=== PATIENT | male | born 1965 | race Two or more races ===

== ENCOUNTER 2017-08-11 13:00 | Emergency (ER) | payer MEDICAID ==
[~2017-08-11] VITALS: Ht 172.7 cm; Wt 154.2 kg
[2017-08-11 14:23] LABS: Basophils # (auto) 0.1 uL; Eosinophils # (auto) 0.3 uL; Eosinophils % (auto) 3.1 % (0.0-7.0); Hematocrit 51.2 % (41.0-53.0); Hemoglobin 16.9 g/dL (13.5-17.5); Lymphocytes % (auto) 23.9 % (10.0-50.0); Mean Corpuscular Hemoglobin 28.8 pg (28.0-32.0); Mean Corpuscular Volume 87.1 fL (80.0-100.0); Monocytes # (auto) 0.5 uL; Neutrophils # (auto) 5.4 uL; Nucleated Red Blood Cells % 0.2 %; Platelet Count (auto) 263 10^3/uL (140-450); Red Cell Distribution Width 17.5 % (11.8-14.3); White Blood Cell 8.2 10^3/uL (4.4-10.8)
[2017-08-11 14:36] LABS: Albumin 3.3 g/dL (3.4-5.0); Alkaline Phosphatase 100 U/L (45-117); Anion Gap 6 (5-15); Aspartate Aminotransferase 23 U/L (15-37); BUN/Creatinine Ratio 15.5; Bilirubin, Total 0.7 mg/dL (0.2-1.0); Blood Urea Nitrogen 15 mg/dL (7-18); Calcium 8.3 mg/dL (8.5-10.1); Carbon Dioxide 31 mmol/L (21-32); Chloride 100 mmol/L (98-107); GFR African American 104 mL/min; GFR Non-African American 86 mL/min; Glucose 113 mg/dL (74-106); Magnesium 2.2 mg/dL (1.6-2.6); Potassium 3.9 mmol/L (3.5-5.1); Sodium 137 mmol/L (136-145); Total Protein 7.8 g/dL (6.4-8.2)
[2017-08-11 15:34] VITALS: BP 123/65
== END 2017-08-11 15:26 | disposition home or self-care (01) ==
LOC: ER 13:00
DX: I11.0 Hypertensive heart disease with heart failure (principal); I50.9 Heart failure, unspecified; E66.01 Morbid (severe) obesity due to excess calories; Z68.43 Body mass index [BMI] 50.0-59.9, adult
CPT/HCPCS: 36415; 71020; 80053; 83735; 84484; 85025; 93005

== ENCOUNTER 2018-01-18 14:51 | Inpatient (IN) | payer MEDICAID ==
[~2018-01-18] VITALS: Ht 175.3 cm; Wt 147.3 kg
[2018-01-18 15:47] LABS: Basophils # (auto) 0 uL; Basophils % (auto) 0.5 % (0.0-2.0); Eosinophils # (auto) 0.2 uL; Eosinophils % (auto) 2.8 % (0.0-7.0); Hematocrit 51.6 % (41.0-53.0); Hemoglobin 16.9 g/dL (13.5-17.5); Lymphocytes # (auto) 1.1 uL; Lymphocytes % (auto) 12.9 % (10.0-50.0); Mean Corpuscular Hemoglobin 29.1 pg (28.0-32.0); Mean Corpuscular Hgb Conc. 32.7 g/dL (32.0-36.0); Monocytes # (auto) 0.7 uL; Monocytes % (auto) 7.9 % (0.0-12.0); Neutrophils # (auto) 6.4 uL; Neutrophils % (auto) 75.9 % (37.0-80.0); Nucleated Red Blood Cells % 0.1 %; Platelet Count (auto) 271 10^3/uL (140-450); Red Cell Distribution Width 16.8 % (11.8-14.3); White Blood Cell 8.5 10^3/uL (4.4-10.8)
[2018-01-18 16:04] LABS: Albumin 3.2 g/dL (3.4-5.0); Bilirubin, Total 0.8 mg/dL (0.2-1.0); Calcium 8.4 mg/dL (8.5-10.1); Magnesium 2.3 mg/dL (1.6-2.6); Potassium 4.2 mmol/L (3.5-5.1); Total Protein 7.5 g/dL (6.4-8.2)
[2018-01-18] MEDS ORDERED: LEVOFLOXACIN 500MG 100 ML IV ONE (16:30)
[2018-01-18] MEDS ORDERED: SODIUM CHLORIDE 0.9% 4,500 ML IV ONE (16:30)
[2018-01-18] MEDS ORDERED: cefTRIAXone 1GM/10ml IVPUSH 10 ML IV ONE (17:30)
[2018-01-18] MEDS ORDERED: AZITHROMYCIN 500MG/ 250ML 250 ML IV ONE (17:30)
[2018-01-18] MEDS ORDERED: ACETAMINOPHEN 325 MG TAB PO PRN (17:45)
[2018-01-18] MEDS ORDERED: DOCUSATE SOD 100 MG CAP PO PRN (17:45)
[2018-01-18] MEDS ORDERED: MORPHINE SULFATE 4 MG/ML SYR/VIAL IV PRN ×2 (17:45)
[2018-01-18] MEDS ORDERED: TEMAZEPAM 15 MG CAP PO PRN (17:45)
[2018-01-18] MEDS ORDERED: NITROGLYCERIN 0.4 MG SL TAB SL PRN (17:45)
[2018-01-18] MEDS ORDERED: ONDANSETRON HCL 4 MG/2 ML VIAL IV PRN (17:45)
[2018-01-18 18:13] LABS: Urine Bacteria NONE SEEN /hpf (None Seen); Urine Blood Negative /uL (Negative); Urine Mucus FEW (None Seen); Urine Specific Gravity 1.016 (1.001-1.035); Urine WBC 1 /hpf (0 - 3)
[2018-01-18] MEDS: IPRATROPIUM BROM 0.5 MG/2.5ML INH SOL NEB SCH (18:15)
[2018-01-18] MEDS: ALBUTEROL SULF 2.5 MG/0.5ML(0.5%) NEB SOLN NEB SCH (18:15)
[2018-01-18] MEDS: FUROSEMIDE 40 MG TAB PO SCH (18:42)
[2018-01-18] MEDS: BOOST PLUS 8 ounce PO SCH (18:56)
[2018-01-18 18:59] VITALS: BP 152/88
[2018-01-18] MEDS ORDERED: cloNIDine HCL 0.1 MG TAB PO PRN (19:30)
[2018-01-18] MEDS ORDERED: LOSA100T27 PO (20:47)
[2018-01-18] MEDS ORDERED: FURO40TA PO (20:47)
[2018-01-18] MEDS ORDERED: ALBU2TAB4 (20:47)
[2018-01-18] MEDS ORDERED: OME20GT PO (20:47)
[2018-01-18] MEDS: HYDROcodone-ACET 5/325MG TAB PO PRN (21:22)
[2018-01-18] MEDS: SODIUM CHLOR 0.9% PF (SALINE LOCK) 10ML VIAL IV SCH (21:23)
[2018-01-18] MEDS: FAMOTIDINE 20 MG TAB PO SCH (21:23)
[2018-01-18] MEDS: POTASSIUM CHL 10 Meq TABLET PO SCH (21:23)
[2018-01-19] MEDS: ALBUTEROL SULF 2.5 MG/0.5ML(0.5%) NEB SOLN NEB SCH ×4 (00:09→19:01)
[2018-01-19] MEDS: IPRATROPIUM BROM 0.5 MG/2.5ML INH SOL NEB SCH ×4 (00:09→19:01)
[2018-01-19 04:33] VITALS: BP 111/62
[2018-01-19] MEDS: SODIUM CHLOR 0.9% PF (SALINE LOCK) 10ML VIAL IV SCH ×3 (05:37→21:14)
[2018-01-19] MEDS: FUROSEMIDE 40 MG TAB PO SCH ×2 (05:38→17:51)
[2018-01-19 05:59] LABS: Basophils # (auto) 0 uL; Basophils % (auto) 0.3 % (0.0-2.0); Eosinophils # (auto) 0.1 uL; Hemoglobin 16.9 g/dL (13.5-17.5); Lymphocytes # (auto) 0.9 uL; Lymphocytes % (auto) 12.4 % (10.0-50.0); Mean Corpuscular Hemoglobin 29.3 pg (28.0-32.0); Mean Corpuscular Hgb Conc. 33.1 g/dL (32.0-36.0); Mean Corpuscular Volume 88.4 fL (80.0-100.0); Monocytes # (auto) 0.7 uL; Monocytes % (auto) 9.8 % (0.0-12.0); Neutrophils # (auto) 5.5 uL; Neutrophils % (auto) 75.5 % (37.0-80.0); Nucleated Red Blood Cells % 0.1 %; Platelet Count (auto) 258 10^3/uL (140-450); Red Blood Cells 5.77 10^6/uL (4.5-5.90); Red Cell Distribution Width 16.9 % (11.8-14.3); White Blood Cell 7.3 10^3/uL (4.4-10.8)
[2018-01-19 06:34] LABS: Albumin 2.9 g/dL (3.4-5.0); BUN/Creatinine Ratio 14.9; Calcium 8.5 mg/dL (8.5-10.1); Potassium 4.7 mmol/L (3.5-5.1)
[2018-01-19 06:38] LABS: Bilirubin, Total 0.8 mg/dL (0.2-1.0); Total Protein 7.3 g/dL (6.4-8.2)
[2018-01-19] MEDS: BOOST PLUS 8 ounce PO SCH ×3 (07:41→17:50)
[2018-01-19 08:39] VITALS: BP 133/67
[2018-01-19] MEDS: HYDROcodone-ACET 5/325MG TAB PO PRN ×2 (11:05→21:14)
[2018-01-19] MEDS: cefTRIAXone 1GM/10ml IVPUSH 10 ML IV SCH (11:40)
[2018-01-19] MEDS: AZITHROMYCIN 500MG/ 250ML 250 ML IV SCH (11:41)
[2018-01-19] MEDS: LOSARTAN POTASSIUM 50 MG TAB PO SCH (11:41)
[2018-01-19] MEDS: POTASSIUM CHL 10 Meq TABLET PO SCH ×2 (11:41→21:14)
[2018-01-19] MEDS: MULTIPLE VITAMIN TAB PO SCH (11:42)
[2018-01-19] MEDS: FAMOTIDINE 20 MG TAB PO SCH ×2 (11:42→21:14)
[2018-01-19] MEDS: PANTOPRAZOLE 40 MG TAB PO SCH (11:42)
[2018-01-19 12:12] VITALS: BP 80/45
[2018-01-19 16:37] VITALS: BP 105/65
[2018-01-19 22:00] VITALS: BP 112/56
[2018-01-20] MEDS: IPRATROPIUM BROM 0.5 MG/2.5ML INH SOL NEB SCH ×3 (00:07→13:12)
[2018-01-20] MEDS: ALBUTEROL SULF 2.5 MG/0.5ML(0.5%) NEB SOLN NEB SCH ×3 (00:07→13:12)
[2018-01-20 05:30] VITALS: BP 134/67
[2018-01-20] MEDS: SODIUM CHLOR 0.9% PF (SALINE LOCK) 10ML VIAL IV SCH ×2 (05:33→13:26)
[2018-01-20] MEDS: FUROSEMIDE 40 MG TAB PO SCH (05:34)
[2018-01-20 06:39] LABS: Eosinophils # (auto) 0.2 uL; Eosinophils % (auto) 3.4 % (0.0-7.0); Hematocrit 55.1 % (41.0-53.0); Neutrophils # (auto) 4.1 uL; Red Cell Distribution Width 16.9 % (11.8-14.3); White Blood Cell 6.8 10^3/uL (4.4-10.8)
[2018-01-20 06:48] LABS: Basophils # (auto) 0 uL; Basophils % (auto) 0.5 % (0.0-2.0); Hemoglobin 18.2 g/dL (13.5-17.5); Lymphocytes # (auto) 1.5 uL; Lymphocytes % (auto) 21.6 % (10.0-50.0); Mean Corpuscular Hemoglobin 29.4 pg (28.0-32.0); Mean Corpuscular Hgb Conc. 33.1 g/dL (32.0-36.0); Monocytes % (auto) 14.6 % (0.0-12.0); Neutrophils % (auto) 59.9 % (37.0-80.0); Nucleated Red Blood Cells % 0.3 %; Platelet Count (auto) 274 10^3/uL (140-450); Red Blood Cells 6.19 10^6/uL (4.5-5.90)
[2018-01-20 06:53] LABS: Potassium 4.3 mmol/L (3.5-5.1)
[2018-01-20 07:01] LABS: Albumin 2.8 g/dL (3.4-5.0); BUN/Creatinine Ratio 20.2; Calcium 8.5 mg/dL (8.5-10.1)
[2018-01-20 07:03] LABS: Bilirubin, Total 0.8 mg/dL (0.2-1.0); Total Protein 7.1 g/dL (6.4-8.2)
[2018-01-20 07:25] VITALS: BP 99/45
[2018-01-20] MEDS: BOOST PLUS 8 ounce PO SCH ×2 (08:00→12:14)
[2018-01-20] MEDS: cefTRIAXone 1GM/10ml IVPUSH 10 ML IV SCH (08:41)
[2018-01-20] MEDS: HYDROcodone-ACET 5/325MG TAB PO PRN ×2 (08:42→09:56)
[2018-01-20] MEDS ORDERED: amLODIPine BESYLATE 5 MG TAB PO SCH (10:00)
[2018-01-20] MEDS: LOSARTAN POTASSIUM 50 MG TAB PO SCH (10:00)
[2018-01-20] MEDS: AZITHROMYCIN 500MG/ 250ML 250 ML IV SCH (10:44)
[2018-01-20] MEDS: MULTIPLE VITAMIN TAB PO SCH (10:46)
[2018-01-20] MEDS: FAMOTIDINE 20 MG TAB PO SCH (10:46)
[2018-01-20] MEDS: POTASSIUM CHL 10 Meq TABLET PO SCH (10:46)
[2018-01-20] MEDS: PANTOPRAZOLE 40 MG TAB PO SCH (10:47)
[2018-01-20 12:13] VITALS: BP 101/50
[2018-01-20 13:56] VITALS: BP 101/50
== END 2018-01-20 16:04 | disposition home or self-care (01) | DRG 139 ==
LOC: EDBD 14:51 → EDUNIT# 14:51 → ER 14:51 → TELE 14:52 → TELE-CENTR 20:30
PROVIDERS: ADMIT Internal Medicine; ATTEND Internal Medicine
DX: J18.1 Lobar pneumonia, unspecified organism (principal); E44.0 Moderate protein-calorie malnutrition; I11.0 Hypertensive heart disease with heart failure; J44.0 Chronic obstructive pulmonary disease with (acute) lower respiratory infection; I48.92 Unspecified atrial flutter; J45.901 Unspecified asthma with (acute) exacerbation; I50.9 Heart failure, unspecified; I48.91 Unspecified atrial fibrillation; E83.51 Hypocalcemia; E66.01 Morbid (severe) obesity due to excess calories; G47.33 Obstructive sleep apnea (adult) (pediatric); M19.90 Unspecified osteoarthritis, unspecified site; N40.0 Benign prostatic hyperplasia without lower urinary tract symptoms; I25.10 Atherosclerotic heart disease of native coronary artery without angina pectoris; Z85.828 Personal history of other malignant neoplasm of skin; Z87.891 Personal history of nicotine dependence; Z68.42 Body mass index [BMI] 45.0-49.9, adult
CPT/HCPCS: 36415; 36600; 71046; 80053; 81001; 82805; 83605; 83735; 83880; 84484; 85025; 85379; 87040; 87070; 87205; 93005; 94640; 94660; J1956

== ENCOUNTER 2018-11-07 16:07 | Inpatient (IN) | payer MEDICAID | END 2018-11-12 17:00 | disposition home or self-care (01) | LOC: ER 16:07 → TELE 18:30 → TELE-WESTW 22:40 | PROC: B5171ZZ Fluoroscopy of Left Subclavian Vein using Low Osmolar Contrast (ICD-10-PCS; principal; ~2018-11-07) | PROC: 0JH606Z Insertion of Pacemaker, Dual Chamber into Chest Subcutaneous Tissue and Fascia, Open Approach (ICD-10-PCS; ~2018-11-07) | DX: I49.5 Sick sinus syndrome (principal); I24.9 Acute ischemic heart disease, unspecified; E66.01 Morbid (severe) obesity due to excess calories; I11.0 Hypertensive heart disease with heart failure; I50.22 Chronic systolic (congestive) heart failure; E11.9 Type 2 diabetes mellitus without complications; J44.9 Chronic obstructive pulmonary disease, unspecified ==

== ENCOUNTER 2019-10-03 17:22 | Emergency (ER) | payer MEDICAID ==
[~2019-10-03] VITALS: Ht 167.6 cm; Wt 101.6 kg
[~2019-10-03 17:22] MED LIST: ALBU2TAB4; FURO1TAB31 PO; HYDR-3547 PO; LOSA-39 PO; OME20GT PO; POTA10TA51 PO; SENN1TAB14 PO
[2019-10-03 17:55] VITALS: BP 128/69
== END 2019-10-03 18:53 | disposition home or self-care (01) ==
LOC: ER 17:33
DX: S69.92XA Unspecified injury of left wrist, hand and finger(s), initial encounter (principal); M79.642 Pain in left hand; X58.XXXA Exposure to other specified factors, initial encounter; Y93.89 Activity, other specified; Y92.89 Other specified places as the place of occurrence of the external cause; Y99.8 Other external cause status
CPT/HCPCS: 73130

== ENCOUNTER 2020-10-11 09:10 | Emergency (ER) | payer MEDICARE, MEDICAID ==
[~2020-10-11] VITALS: Ht 175.3 cm; Wt 158.8 kg
[2020-10-11 09:24] VITALS: BP 144/65
[2020-10-11 10:15] LABS: Basophils # (auto) 0 10 ^3/uL (0-0.2); Eosinophils # (auto) 0.2 10 ^3/uL (0-0.8); Lymphocytes # (auto) 0.9 10 ^3/uL (0.4-5.4); Neutrophils # (auto) 5.6 10 ^3/uL (1.6-8.6); White Blood Cell 7.3 10^3/uL (4.4-10.8)
[2020-10-11 10:18] LABS: Basophils % (auto) 0.3 % (0.0-2.0); Eosinophils % (auto) 2.5 % (0.0-7.0); Hemoglobin 17.6 g/dL (13.5-17.5); Lymphocytes % (auto) 11.7 % (10.0-50.0); Mean Corpuscular Hemoglobin 25.5 pg (28.0-32.0); Mean Corpuscular Hgb Conc. 31.4 g/dL (32.0-36.0); Mean Corpuscular Volume 81.3 fL (80.0-100.0); Monocytes # (auto) 0.7 10 ^3/uL (0-1.3); Monocytes % (auto) 9.1 % (0.0-12.0); Neutrophils % (auto) 76.4 % (37.0-80.0); Nucleated Red Blood Cells % 0.6 %; Platelet Count (auto) 257 10^3/uL (140-450); Red Blood Cells 6.91 10^6/uL (4.5-5.90); Red Cell Distribution Width 18.7 % (11.8-14.3)
[2020-10-11 10:31] LABS: Albumin 2.9 g/dL (3.4-5.0); Calcium 8.4 mg/dL (8.5-10.1); Potassium 3.9 mmol/L (3.5-5.1)
[2020-10-11 10:35] LABS: BUN/Creatinine Ratio 15.7; Bilirubin, Total 1.1 mg/dL (0.2-1.0); Total Protein 7.5 g/dL (6.4-8.2)
[2020-10-11 10:36] LABS: Hematocrit 56.2 % (41.0-53.0)
[2020-10-11] MEDS ORDERED: cefTRIAXone 1GM/50ML D5W 50 ML IV ONE (10:45)
[2020-10-11] MEDS ORDERED: AZITHROMYCIN 500MG/ 250ML 250 ML IV ONE (10:45)
[2020-10-11] MEDS ORDERED: methylPREDNISolone SOD SUCC 125 MG/2 ML VL IV ONE (11:30)
== END 2020-10-11 12:42 | disposition home or self-care (01) ==
LOC: ER 09:10
DX: J44.9 Chronic obstructive pulmonary disease, unspecified (principal); E66.01 Morbid (severe) obesity due to excess calories; F17.210 Nicotine dependence, cigarettes, uncomplicated; I11.0 Hypertensive heart disease with heart failure; I50.9 Heart failure, unspecified; E11.9 Type 2 diabetes mellitus without complications; E78.5 Hyperlipidemia, unspecified; Z68.43 Body mass index [BMI] 50.0-59.9, adult; Z20.828 Contact with and (suspected) exposure to other viral communicable diseases
CPT/HCPCS: 36415; 71045; 80053; 83880; 84484; 85025; 87426; 93005; 96365; 96375; 99285; C9803; J0696; J2930; U0003